=== PATIENT | female | born 1950 | race Caucasian/White ===

== ENCOUNTER 2021-12-19 12:05 | Outpatient (REF) | payer MEDICARE, SELFPAY ==
--- NOTE | ~2021-12-19 | MM_ITS ---
EXAMINATION: MM SCREENING DIGITAL BREAST TOMOSYNTHESIS, BILATERAL CLINICAL INFORMATION: Screening. Asymptomatic. The lifetime risk of breast cancer based on the Tyrer-Cuzick Model is 8%. COMPARISON: Mammography: 08/11/2009 TECHNIQUE: Digital breast tomosynthesis is performed in both the craniocaudal and mediolateral oblique views along with computer-aided detection (CAD). Synthesized 2D images are generated from the tomosynthesis. FINDINGS: There are scattered areas of fibroglandular density (ACR BI-RADS breast composition Category b). There are no significant masses, abnormal calcifications, or other abnormalities. Parenchymal pattern is similar to prior remote exam. The axilla and skin contours are unremarkable. MM/MM tomosynthesis screening BI IMPRESSION: No mammographic evidence of malignancy. ASSESSMENT: BI-RADS 1: Negative RECOMMENDATION: Routine annual mammography screening. This patient's information was entered into a reminder system with a target due date for their next mammogram.
== END 2021-12-19 12:06 | disposition home or self-care (01) ==
LOC: HO.MAMMO 12:05
PROVIDERS: PCP Internal Medicine; Visit Provider Internal Medicine
DX: Z12.31 Encounter for screening mammogram for malignant neoplasm of breast (principal)
CPT/HCPCS: 77063; 77067

== ENCOUNTER 2023-06-06 13:42 | Outpatient (REF) | payer MEDICARE, SELFPAY ==
--- NOTE | ~2023-06-06 | XR_ITS ---
EXAMINATION: XR LUMBAR SPINE XR BILATERAL KNEES CLINICAL INFORMATION: Back pain, bilateral knee pain. COMPARISON: None available. TECHNIQUE: 3 views of the lumbar spine. AP and lateral views of each knee. FINDINGS: LUMBAR SPINE: The bones are diffusely demineralized. Degenerative changes in the bilateral sacroiliac joints. Degenerative changes in the imaged lower thoracic spine. Slight rightward curvature of the thoracolumbar spine. Multilevel lumbar spondylosis. Moderate loss of disc space height and hypertrophic change at L5-S1. Facet arthritis in the lower lumbar spine. LEFT KNEE: The bones are diffusely demineralized. No significant joint effusion. Mild medial joint space narrowing. RIGHT KNEE: Small superior quadriceps enthesophyte. No significant joint effusion. Mild medial joint space narrowing. XR/XR knee LT 2V IMPRESSION: 1. Moderate degenerative changes at L5-S1. 2. Mild degenerative changes in the bilateral knees.
--- NOTE | ~2023-06-06 | XR_ITS ---
EXAMINATION: XR LUMBAR SPINE XR BILATERAL KNEES CLINICAL INFORMATION: Back pain, bilateral knee pain. COMPARISON: None available. TECHNIQUE: 3 views of the lumbar spine. AP and lateral views of each knee. FINDINGS: LUMBAR SPINE: The bones are diffusely demineralized. Degenerative changes in the bilateral sacroiliac joints. Degenerative changes in the imaged lower thoracic spine. Slight rightward curvature of the thoracolumbar spine. Multilevel lumbar spondylosis. Moderate loss of disc space height and hypertrophic change at L5-S1. Facet arthritis in the lower lumbar spine. LEFT KNEE: The bones are diffusely demineralized. No significant joint effusion. Mild medial joint space narrowing. RIGHT KNEE: Small superior quadriceps enthesophyte. No significant joint effusion. Mild medial joint space narrowing. XR/XR knee RT 2V IMPRESSION: 1. Moderate degenerative changes at L5-S1. 2. Mild degenerative changes in the bilateral knees.
--- NOTE | ~2023-06-06 | XR_ITS ---
EXAMINATION: XR LUMBAR SPINE XR BILATERAL KNEES CLINICAL INFORMATION: Back pain, bilateral knee pain. COMPARISON: None available. TECHNIQUE: 3 views of the lumbar spine. AP and lateral views of each knee. FINDINGS: LUMBAR SPINE: The bones are diffusely demineralized. Degenerative changes in the bilateral sacroiliac joints. Degenerative changes in the imaged lower thoracic spine. Slight rightward curvature of the thoracolumbar spine. Multilevel lumbar spondylosis. Moderate loss of disc space height and hypertrophic change at L5-S1. Facet arthritis in the lower lumbar spine. LEFT KNEE: The bones are diffusely demineralized. No significant joint effusion. Mild medial joint space narrowing. RIGHT KNEE: Small superior quadriceps enthesophyte. No significant joint effusion. Mild medial joint space narrowing. XR/XR lumbar spine 4V min IMPRESSION: 1. Moderate degenerative changes at L5-S1. 2. Mild degenerative changes in the bilateral knees.
== END 2023-06-06 13:43 | disposition home or self-care (01) ==
LOC: HO.HMGCX 13:42
PROVIDERS: PCP Internal Medicine; Visit Provider Internal Medicine
DX: M54.9 Dorsalgia, unspecified (principal); M25.561 Pain in right knee; M25.562 Pain in left knee
CPT/HCPCS: 72110; 73560

== ENCOUNTER 2025-04-26 14:06 | Outpatient (AMB) | payer MEDICARE, SELFPAY ==
--- NOTE | 2025-04-26 14:21 | A.OFFPC_ITS ---
Vital Signs 04/26/25 14:28 Height 5 ft 2.4 in Weight 134 lb BMI 24.2 BP 138/80 Respiration 14 Pulse 88 Pulse Source Pulse Oximeter Temp 98.1 F Temp Source Temporal Artery Scan Pulse Oximetry (%) 99 Oxygen Delivery Method Room Air Intake Visit Reasons: Establish Care/ Dr. Perez - see comments Storage Engineer Required: No Accompanied by: Self / Same As Patient Allergies No Known Allergies Allergy (Unverified 04/26/25 14:21) Tobacco use date assessed: 04/26/25 Fall risk assessment: No Falls in past year Last assessed Fall Risk: 04/26/25 Dental Screening Dental Screen Date: 04/26/25 Did you have a dental visit in the last 12 months?: Yes Did you have a dental problem in the last 6 months where you did not have access to dental care?: No Was dental information given to patient?: Patient has dentist [facility] Medical History (Updated 04/26/25 @ 15:06 by Vikash Baird MD) Hyperlipidemia Family History (Updated 04/26/25 @ 14:33 by MARKUS Clarke) Father No problems noted. Mother Breast cancer Gallbladder cancer Social History (Updated 04/26/25 @ 14:33 by MARKUS Clarke) Housing: House Alcohol intake: current Alcohol intake frequency: does not drink Patient Tobacco Use Status: Never used Tobacco service: No Current occupational status: retired Cognitive needs: No Hearing needs: No Vision needs: Yes (rx glasses) Questionnaire PHQ-9 Over the last 2 weeks, how often have you been bothered by any of the following problems? 1. Little interest or pleasure in doing things: not at all 2. Feeling down, depressed, or hopeless: not at all 3. Trouble falling or staying asleep, or sleeping too much: not at all 4. Feeling tired or having little energy: not at all 5. Poor appetite or overeating: not at all 6. Feeling bad about yourself - or that you are a failure or have let yourself or your family down: not at all 7. Trouble concentrating on things, such as reading the newspaper or watching television: not at all 8. Moving or speaking so slowly that other people could have noticed. Or the opposite - being so fidgety or restless that you have been moving around a lot more than usual: not at all 9. Thoughts that you would be better off or of hurting yourself in some way: not at all Total score: 0 Source: Developed by Drs. Praveen Luther, Jillian Duke, Francesco Velarde and colleagues, with an educational romario from [employer]. Thrive Questionnaire Date Thrive assessed: 04/26/25 I am a: Patient What is your living situation today?: I have a steady place to live Within the past 12 months, did the food you bought not last and you didn't have the money to get more?: Never true Within the past 12 months, did you worry whether your food would run out before you got money to buy more?: Never true Do you have trouble paying for medicines?: No Do you have trouble getting transportation to medical appointments?: No Do you have trouble paying your heating and electricity bill?: No Do you have trouble taking care of your child, family member or friend?: No Do you have trouble with day-to-day activities such as bathing, preparing meals, shopping, managing finances, etc.?: No Are you currently unemployed and looking for a job?: No Are you interested in more education?: No Please select the resources that you would like help with: None THRIVE Score: 0 AUDIT C Alcohol Use Questionnaire (AUDIT-C) 1. How often do you have a drink containing alcohol?: Never 3. How often do you have six or more drinks on one occasion?: Never Total Score: 0 LOPEZ-7 AMB Questionnaire LOPEZ-7 Date LOPEZ - 7 assessed: 04/26/25 Feeling nervous, anxious, or on edge: 0 = Not at all Not being able to stop or control worryin = Not at all Worrying too much about different things: 0 = Not at all Trouble relaxin = Not at all Being so restless that it is hard to sit still: 0 = Not at all Becoming easily annoyed or irritable: 0 = Not at all Feeling afraid as if something awful might happen: 0 = Not at all Total LOPEZ-7 score (0-4 normal; 5-9 mild; 10-14 moderate; 15-21 severe): 0 Source: Developed by Jillian De León Kurt Kroenke and colleagues, with an educational romario from [employer]. Physical exam (Primary Care) Vital Signs: Last Vital Signs Temp 98.1 F 04/26/25 14:28 Pulse 88 04/26/25 14:28 Resp 14 04/26/25 14:28 BP 138/80 04/26/25 14:28 Pulse Ox 99 04/26/25 14:28 Oxygen Delivery Method Room Air 04/26/25 14:28 BMI result Body Mass Index 24.2 Tobacco/Smoking Status: Tobacco use Status Tobacco use date assessed 04/26/25 04/26/25 14:23 Patient Tobacco Use Status Never used Tobacco 04/26/25 14:33 PHQ-9: PHQ-9 Score PHQ-9: Total score 0 04/26/25 14:58 Thrive Assessment: Date of Thrive Assessment Date Thrive assessed 04/26/25 04/26/25 14:23 Office Procedures Flu Questionnaire Does the patient have a severe egg allergy?: No Does the patient have severe life threatening allergies?: No Does the patient have a fever or illness today?: No Has the patient ever had Guillain-[place] Syndrome?: No Has the patient ever had any past reaction to a flu shot?: No Results AMB Urinalysis, Automated UA Leukoctes 125 Samantha/uL Last Edit by Shannon Desir Yumiko on 04/26/25 15:02 2+ Shannon Desir 04/26/25 15:02 UA Nitrite Negative Last Edit by Shannon eDsir A on 04/26/25 15:02 negative Shannon Desir 04/26/25 15:02 UA Urobilinogen mg/dL Last Edit by Shannon Desir [facility] on 04/26/25 15:02 0.2 Shannon Desir 04/26/25 15:02 UA Protein mg/dL Last Edit by Shannon Desir Yumiko on 04/26/25 15:02 negative Shannon Desir 04/26/25 15:02 UA pH Last Edit by Shannon Desir [facility] on 04/26/25 15:02 8.5 Shannon Desir 04/26/25 15:02 UA Blood Fran/uL Last Edit by Shannon Desir [facility] on 04/26/25 15:02 2+ Shannon Desir 04/26/25 15:02 UA Specific [place] Last Edit by MARKUS Clarke on 04/26/25 15:02 1.010 Shannon Desir 04/26/25 15:02 UA Ketone Last Edit by MARKUS Clarke on 04/26/25 15:02 negative Shannon Desir 04/26/25 15:02 UA Bilirubin mg/dL Last Edit by MARKUS Clarke on 04/26/25 15:02 negative Shannon Desir 04/26/25 15:02 UA Glucose mg/dL Last Edit by Shannon Desir RMA on 04/26/25 15:02 negative Shannon Desir 04/26/25 15:02 Immunizations Fluarix [id number] (PF) 45 mcg (15 mcg x 3)/0.5 mL IM syringe Performing Provider: Vikash Baird MD [facility] [facility] [place] [facility] Documented (not given) by: MARKUS Clarke on 04/26/25 14:34 Reason Not Given: Patient Refused Results Reviewed Results Reviewed: Laboratory Last Values Urine pH (Auto) 04/26/25 14:56 Specific [place] (Auto) 04/26/25 14:56 Urine Protein (Auto) mg/dL 04/26/25 14:56 Glucose (UA)(Auto) mg/dL 04/26/25 14:56 Urine Ketones (Auto) 04/26/25 14:56 Urine Blood (Auto) Fran/uL 04/26/25 14:56 Urine Nitrite (Auto) Negative 04/26/25 14:56 Urine Bilirubin (Auto) mg/dL 04/26/25 14:56 Urine Urobilinogen (Auto) mg/dL 04/26/25 14:56 Leukocyte Esterase (Auto) 125 Samantha/uL 04/26/25 14:56 Coding Level of Care Code New Pt Level 4 (66784) Complex EM visit Add On G2211 Diagnoses Hyperlipidemia E78.5 Assessment & Plan Assessment & Plan (1) Hyperlipidemia: Code(s): E78.5 - Hyperlipidemia, unspecified Category: Medical Plan: History of Present Illness - The patient is a 74-year-old female presenting with urinary symptoms suggestive of a urinary tract infection. - Symptoms began yesterday morning, with increased frequency and burning sensation during urination, though the burning has decreased. - No regular medications; last blood work was a couple of years ago with a retired physician. - Agreed to preventative care measures including colon cancer screening with Cologuard and a mammogram. Social History - The patient lives alone but has a supportive network of friends from [place]. - She does not consume gluten due to constipation issues when ingested. - Her five years ago, and she lives off his pension. Review of Systems - Genitourinary: Reports increased frequency and burning sensation during urination, which has decreased. - Neurological: Denies difficulty sleeping, though sometimes wakes up and finds it hard to return to sleep. - Ophthalmologic: Denies halos around lights while driving at night. - Auditory: Reports no issues with hearing, able to have cell phone conversations. Physical Exam General: Cooperative and healthy appearing Nutritional Appearance: Well nourished Orientation/consciousness: Patient oriented x3 Limitations: No limitations Head: Normal to inspection General: Appearance normal, both eyes and all related structures Neck: Normal visual inspection Chest: Normal palpation of entire chest wall Respiratory: Normal respiratory effort Neurology: Patient oriented x3 Results - Urinalysis: Positive for infection. Plan - Prescribed Bactrim for five days to treat the urinary tract infection. - Prescribed Pyridium for bladder discomfort, up to three times daily. - Recommended colon cancer screening with Cologuard and a mammogram. - Advised fasting before blood work at the local lab. Discussion Notes I discussed with the patient the positive urinalysis indicating a urinary tract infection and prescribed Bactrim and Pyridium for treatment. We also talked about the importance of preventative care, including colon cancer screening with Cologuard and a mammogram, which she agreed to. I advised her to have blood work done at a local lab, ensuring she fasts beforehand. We discussed the risks and benefits of Cologuard, and she decided to proceed with it. I also provided reassurance regarding the side effects of Pyridium, such as orange urine, and emphasized the importance of follow-up care. Patient Instructions - Take Bactrim twice daily for five days. - Take Pyridium up to three times a day for bladder discomfort. - Do not be alarmed if urine turns orange due to Pyridium. - Schedule and complete colon cancer screening with Cologuard and a mammogram. - Fast before going for blood work at the local lab. Orders: Orders Complete Blood Count no Diff Today E78.5 - Hyperlipidemia, unspecified Liver Panel Today E78.5 - Hyperlipidemia, unspecified MM screening mammo BI Today Z12.31 - Encounter for screening mammogram for malignant neoplasm of breast Influenza [id number] Immunization Today Z23 - Encounter for immunization AMB Urinalysis Automated Today Z13.9 - Encounter for screening, unspecified Basic Metabolic Panel Today E78.5 - Hyperlipidemia, unspecified Lipid Panel Today E78.5 - Hyperlipidemia, unspecified Thyroid Stimulating Hormone Today E78.5 - Hyperlipidemia, unspecified UA and rflx microscopic Today E78.5 - Hyperlipidemia, unspecified Referrals Cologuard Test Z12.11 - Encounter for screening for malignant neoplasm of col on, Z12.12 - Encounter for screening for malignant neoplasm of rectum Medications: New sulfamethoxazole-trimethoprim 800-160 mg (Bactrim DS) 1 tab PO BID 10 tabs 0RF 5 days phenazopyridine (Pyridium) 200 mg PO TID 9 tabs 0RF 3 days
[2025-04-26 14:28] VITALS: BP 138/80; PULSE 88; RESP 14; TEMP 36.7; O2SAT 99; BMI 24.2
--- OUTSIDE RECORDS SUMMARY | 2025-04-26 17:45 | XMS_ITS | Patient Health Record ---
[facility] Address [address] [place] [address] Care Team Providers Care Manager International Name Role Phone Oniel Perez MD Primary Care Provider Unavailab Wayne Fuentes Unavailable [phone] Reason For Referral No Information Medications Medication SIG (Take, Route, Frequency, Duration) Notes Start Date End Date Status Clotrimazole-Betamethasone 1-0.05 % 1 application to affected area Externally Twice a day to affected areas on feet; Duration: 30 days 02/18/2019 Active Social History Alcohol Screen Question Answer Notes Did you have a drink containing alcohol in the p ast year? No Points 0 Interpretation Negative Tobacco use other than smoking: Question Answer Notes Are you an other tobacco user? No Problems Problem Type SNOMED Code ICD Code Onset Dates Problem Status W/U Status Risk Notes Problem Acquired hammer toe of right foot ([id number] 105) Other hammer toe(s) (acquired), right foot (M20.41) Active confirmed Plan Of Treatment Pending Test Test Name Order Date X ray : Foot, right 3V 10/14/2014 Insurance Providers Payer Name Payer Address Payer Phone Subscriber Number Group Number Insured Name Patient Relationship to Insured Coverage Start Date Coverage End Date Medicare [facility] [employer] [address] [place] [address] [phone] [id number] Jenniffer Wray Self - patient is the insured [employer] [address] [place] [address] [phone] [id number] Jenniffer Wray Self - patient is the insured Medical (General) History Medical History History ICD Code Broken bones Chicken pox chronic sinusitis Back,Hip,and Knee pain Osteoporosis Joint implants/screws Surgical History Surgery Date(Month/Year) wrist surgery
== END 2025-04-26 15:07 | disposition home or self-care (01) ==
LOC: HO.HMCSH 14:06
PROVIDERS: PCP Internal Medicine; Visit Provider Internal Medicine
DX: E78.5 Hyperlipidemia, unspecified (principal); Z23 Encounter for immunization; Z13.9 Encounter for screening, unspecified

== ENCOUNTER → 2025-04-26 14:06 | Outpatient (BNVA) | payer MEDICARE, SELFPAY | PROVIDERS: PCP Internal Medicine; Visit Provider Internal Medicine | DX: E78.5 Hyperlipidemia, unspecified (principal); N39.0 Urinary tract infection, site not specified; R35.0 Frequency of micturition; R30.0 Dysuria; Z13.31 Encounter for screening for depression; Z13.39 Encounter for screening examination for other mental health and behavioral disorders | CPT/HCPCS: 81003; 90471; 96127; 99202 ==

== ENCOUNTER 2025-05-05 08:33 | Outpatient (REF) | payer MEDICARE, SELFPAY ==
--- OUTSIDE RECORDS SUMMARY | 2025-05-05 08:47 | XMS_ITS | Patient Health Record ---
Author Organization [facility] Address [address] [place] [address] Care Team Providers Care Die Assembler Name Role Phone Oniel Perez MD Primary Care Provider Unavailab Wayne Fuentes Unavailable [phone] Reason For Referral No Information Medications Medication [...] Problem Acquired hammer toe of right foot ([id number] 105) Other hammer toe(s) (acquired), right foot (M20.41) Active confirmed Plan Of Treatment Pending Test Test Name Order Date X ray : Foot, right 3V 10/14/2014 Insurance Providers Payer Name Payer Address Payer Phone Subscriber Number Group Number Insured Name Patient Relationship to Insured Coverage Start Date Coverage End Date Medicare [facility] [employer] [address] [place] [address] [id number] Jenniffer Wray Self - patient is the insured [employer] [address] [place] [address] [id number] Jenniffer Wray Self - patient is the insured Medical (General) History Medical History History ICD Code Broken bones Chicken pox chronic sinusitis Back,Hip,and Knee pain Osteoporosis Joint implants/screws Surgical History Surgery Date(Month/Year) wrist surgery
[2025-05-05 10:17] LABS: Appearance Urine Clear; Glucose Urine UA Negative (Negative); PH 7.5 (5.0-9.0); Specific Gravity - Urine 1.010 (1.005-1.025); UMIC TRIGGER UA YES
[2025-05-05 10:51] LABS: Hematocrit 42.6 % (37.0-47.0); Hemoglobin 13.8 g/dl (12.0-16.0); Mean Corpuscular HGB Conc 32.4 g/dl (31.0-35.0); Mean Corpuscular Hemoglobin 30.7 pg (27.0-33.0); Mean Corpuscular Volume 94.9 fL (80.0-98.0); NRBC Abs Auto 0.000 X10*3/uL (0.0-0.012); NRBC Pct Auto 0.0 /100WBC (0.0-0.2); Platelet Count 287 X10*3/uL (160-400); Red Blood Count 4.49 X10*6/uL (4.20-5.50); White Blood Count 5.5 X10*3/uL (4.8-10.8)
[2025-05-05 11:14] LABS: Alanine Aminotransferase 16 U/L (0-31); Albumin Level 4.3 g/dL (3.5-5.0); Alkaline Phosphatase 97 U/L (39-117); Anion Gap 5 (12-20); Aspartate Amino Transferase 25 U/L (5-31); Blood Urea Nitrogen 10 mg/dL (9-16); Calcium 9.0 mg/dL (8.4-10.2); Carbon Dioxide 32 mmol/L (22-29); Chloride 110 mmol/L (96-108); Cholesterol 187 mg/dL (<200); Estimated Glomerular Filt Rate > 60; HDL Cholesterol 63 mg/dL (>40); Potassium 4.9 mmol/L (3.3-5.1); Sodium 142 mmol/L (135-145); Total Protein 7.0 g/dL (6.5-8.0); Triglycerides 70 mg/dL (<150)
[2025-05-05 11:32] LABS: Thyroid Stimulating Hormone 0.99 uIU/mL (0.32-4.0)
== END 2025-05-05 08:34 | disposition home or self-care (01) ==
LOC: HO.HMGCLDS 08:33
PROVIDERS: PCP Internal Medicine; Visit Provider Internal Medicine
DX: E78.5 Hyperlipidemia, unspecified (principal)
CPT/HCPCS: 36415; 80048; 80061; 80076; 81001; 84443; 85027